=== PATIENT | male | born 1955 | race Caucasian/White ===

== ENCOUNTER 2020-02-12 17:40 | Inpatient (IN) | payer MEDICARE, SELFPAY ==
--- NOTE | 2020-02-12 17:47 | ECG_ITS ---
Measurements Intervals [place] Rate: 111 P: 66 OR: 166 QRS: 8 QRSD: 106 T: 36 QT: 356 QTc: 484 Interpretive Statements SINUS TACHYCARDIA NONSPECIFIC ST & T-WAVE ABNORMALITY- INF/LAT LEADS ABNORMAL ECG Electronically Signed On 02-13-2020 6:53:49 CDT by Silverio Hernández D.O.
--- NOTE | 2020-02-12 17:48 | ED.GENADULT ---
HPI - General Adult General Chief complaint: Alcohol <Abigail Trejo MD - Last Filed: 02/19/20 07:06> Stated complaint: DT'S <Abigail Trejo MD - Last Filed: 02/19/20 07:06> Time Seen by Provider: 02/12/20 17:46 <Abigail Trejo MD - Last Filed: 02/19/20 07:06> History of Present Illness HPI narrative: Patient presents via EMS for fast heart rate and shaking. He says right away that he is an alcoholic. He has a history of DTs, but not seizures. He last drank this morning. He says a lot. His favorite drink is vodka. He could not quantify it, but did say it was less than a gallon. He is a retired [employer] worker. He does not smoke cigarettes or marijuana. <Abigail Trejo MD - Last Filed: 02/19/20 07:06> Related Data Home medications: Home Medications Medication Instructions Recorded Confirmed acetaminophen 650 mg 650 mg PO TID PRN tablet 09/27/19 02/12/20 tablet,extended release thiamine HCl (vitamin B1) 100 mg 100 mg PO DAILY 01/17/20 02/12/20 tablet mirtazapine 30 mg PO HS 02/12/20 02/12/20 quetiapine 200 mg PO DAILY 02/12/20 02/12/20 <Abigail Trejo MD - Last Filed: 02/19/20 07:06> Allergies/adverse reactions: Allergies Allergy/AdvReac Type Severity Reaction Status Date / Time bupropion Allergy Unknown Nausea and Verified 02/12/20 20:01 Vomiting <Abigail Trejo MD - Last Filed: 02/19/20 07:06> Review of Systems Review of Systems: Narrative: Review of systems is limited by the patient's intoxication. He does say that he has no pain. <Abigail Trejo MD - Last Filed: 02/19/20 07:06> [facility] Past Medical History Medical History: Medical History (Updated 02/14/20 @ 16:06 by Poppy Gill PA-C) Anxiety Cervical spine fracture Old C1-C2 fracture Depression Essential hypertension Hyperlipidemia <Abigail Trejo MD - Last Filed: 02/19/20 07:06> Surgical History Surgical History: Surgical History (Updated 02/13/20 @ 02:11 by Brooklyn Wagner DO) H/O cervical spine surgery Fusion C3 through C7 H/O lumbosacral spine surgery <Abigail Trejo MD - Last Filed: 02/19/20 07:06> Family History Family History: Family History (Updated 02/13/20 @ 01:19 by Brooklyn Wagner DO) Mother Diabetes mellitus Acute myocardial infarction, Onset Age: 79 CHF (congestive heart failure) Father Acute myocardial infarction Late onset Cerebrovascular accident Sibling Acute myocardial infarction 1 brother is from premature coronary artery disease Alcoholism His brother who is still living is an alcoholic. <Abigail Trejo MD - Last Filed: 02/19/20 07:06> Social History Social History: Social History (Updated 02/13/20 @ 02:18 by Brooklyn Wagner DO) Social History: Primary care physician: Dr. Luis Escoto Code status: Full code. The patient does have events directives in place. Smoking status: Never smoker Alcohol intake: current Alcohol use details: He drinks at least 2-fifths of vodka daily. He has drank heavily for 3 years. Substance use: never Substance use type: does not use Living arrangements: alone Additional living arrangements comments: He has been for 3 years. He has been twice. He his 1st . He was to his 2nd for over 20 years prior to her . He has 1 biological child in 2 step children which are his support system. 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 Gender identity (if verbalized by the patient): Male Spiritual care concerns: No <Abigail Trejo MD - Last Filed: 02/19/20 07:06> Exam Narrative: Exam Narrative: GENERAL: Well-appearing, well-nourished, and wet hair and dishe
[2020-02-12 17:49] VITALS: BP 161/100; PULSE 131; RESP 17; TEMP 37.1; O2SAT 95
[2020-02-12 18:03] LABS: Basophils Absolute Auto 0.1 K/mm3 (0.0-0.1); Basophils Percent Auto 0.7 % (0.2-1.2); Eosinophils Absolute Auto 0.1 K/mm3 (0-0.3); Eosinophils Percent Auto 2.1 % (0-4.4); Hematocrit 39.3 % (42.0-52.0); Hemoglobin 12.8 g/dL (14.0-18.0); Immature Granulocyte Absolute 0.02 K/mm3 (0.00-0.031); Immature Granulocyte Percent A 0.3 % (0-0.5); Lymphocytes Absolute Auto 1.34 K/mm3 (0.9-3.2); Lymphocytes Percent Auto 19.8 % (18.3-44.2); Mean Corpuscular HGB Conc 32.6 g/dl (32-36); Mean Corpuscular Hemoglobin 28.1 pg (26-34); Mean Corpuscular Volume 86.2 fl (80-100); Monocytes Absolute Auto 0.5 K/mm3 (0.1-0.6); Monocytes Percent Auto 7.5 % (2.6-8.5); Neutrophils Absolute Auto 4.7 K/mm3 (1.3-6.7); Neutrophils Percent Auto 69.6 % (45.5-73.1); Platelet Count Result 305 k/mm3 (150-375); Red Blood Count 4.56 M/mm3 (4.6-6.20); Red Cell Distribution Width 14.3 % (11.5-14.5); White Blood Count 6.8 K/mm3 (4.5-10.0)
[2020-02-12 18:15] LABS: Alanine Aminotransferase 21 U/L (4-50); Albumin Level 4.8 g/dL (3.5-5.1); Alkaline Phosphatase 99 U/L (38-126); Aspartate Amino Transferase 28 U/L (17-59); Bilirubin,Total 0.6 mg/dL (0.2-1.3); Blood Urea Nitrogen 14 mg/dL (9-20); Carbon Dioxide 19 mmol/L (22-30); Chloride 100 mmol/L (98-107); Estimated CRCL calculation 102 ml/min; Estimated Glomerular Filt Rate > 60; Glucose 162 mg/dL (75-110); Potassium 3.4 mmol/L (3.4-5.0); Sodium 139 mmol/L (137-145)
[2020-02-12 18:27] LABS: Troponin I < 0.012 ng/mL (0.000-0.034)
[2020-02-12 18:38] VITALS: BP 156/87; PULSE 118; RESP 16; O2SAT 95
[2020-02-12] MEDS: ONDANSETRON INJ 4 MG/2 ML VIAL IV PUSH (18:38)
[2020-02-12 18:54] LABS: Ethanol 13 mg/dL (<10)
[2020-02-12] MEDS: LORAZEPAM INJ 2 MG/ML VIAL 1 MG IV PUSH (19:10)
[2020-02-12 19:25] LABS: Add Urine Microscopic? YES; Appearance Urine Clear (Clear); Bilirubin Urine Negative (Negative); Blood Urine 1+ (Negative); Color Urine Yellow (Yellow); Glucose Urine UA 1+ mg/dL (Negative); Ketones Urine 1+ mg/dL (Negative); Leukocyte Esterase Ur Negative LEU/UL (Negative); Mucus Urine Rare /lpf; Nitrate Urine Negative (Negative); Protein Urine 2+ mg/dL (Negative); RBC Urine 0-2 /hpf (0-2); Squamous Epithelial Cell Urine Rare /hpf (Few); Urobilinogen Urine Negative mg/dL (<2.0)
[2020-02-12 19:26] LABS: Specific Grav Ur 1.035 (1.001-1.035)
[2020-02-12 19:34] VITALS: BP 134/82; PULSE 113; RESP 20; O2SAT 94
[2020-02-12 19:36] LABS: Amphetamine Screen Urine Negative (Negative); Barbiturate Screen Urine Negative (Negative); Benzodiazepines Screen Urine Positive (Negative); Cannabinoid Screen Urine Negative (Negative); Cocaine Screen Urine Negative (Negative); Methadone Screen Urine Negative (Negative); Opiate Screen Urine Positive (Negative); Phencyclidine Screen Urine Negative (Negative)
[2020-02-12 20:03] VITALS: BP 153/94; PULSE 118; RESP 16; TEMP 36.8; O2SAT 97
[2020-02-12] MEDS: CHLORDIAZEPOXIDE 25 MG CAPSULE PO (20:04)
--- NOTE | 2020-02-12 20:40 | ADMGEN ---
This patient, Misha Orellana, was admitted to Medical Room 256-. Patient/family oriented to hospital policies and general routines including ID bracelet, bed and alarms, visiting hours, pain management, procedures, bathroom and other care routines, personal items, smoking policy, room service/diet, and visiting hours. Valuables list has been completed. Information on how to activate the Rapid Response Team has been discussed. Patient/Family are encouraged to report perceived risks to care and to ask questions if they do not understand what they are told or what they should do.
[2020-02-12] MEDS: LACTATED RINGERS 1,000 ML 125 ML IV CONT (21:51)
[2020-02-12] MEDS: FAMOTIDINE 20 MG/2 ML VIAL IV PUSH (21:52)
[2020-02-12 22:00] VITALS: BP 157/95; PULSE 117; RESP 20; TEMP 36.6; O2SAT 99; BMI 29.3
[2020-02-13] VITALS (14 sets, daily range): BP systolic 96–151; BP diastolic 65–82; PULSE 73–114; RESP 20–22; TEMP 36.7–37.4; O2SAT 99–100; BMI 29.3
[2020-02-13] MEDS: LORAZEPAM INJ 2 MG/ML VIAL 1 MG IV PUSH ×2 (00:08→08:15)
[2020-02-13] MEDS: CHLORDIAZEPOXIDE 25 MG CAPSULE 75 MG PO ×2 (00:08→05:27)
--- NOTE | 2020-02-13 01:13 | PM.IMHP ---
H&P: HPI History of Present Illness Chief complaint: Alcohol withdrawal Narrative: Date and time of patient contact: 02/12/2020 at 11:40 p.m. Misha Orellana is a 64 year old male with a past medical history of anxiety, depression, hypertension and alcoholism who presented to the ER alcohol withdrawal symptoms. He reports that he drinks at least 2 fifths of vodka a day. He has drank heavily for the last 3 years since his . He wants to quit drinking alcohol. He states that his last drink was on the morning of the . He reported that on the morning of the that he knew he needed help. He reports that he has had a high heart rate ever since his 3 years ago. However he started feeling his heart racing and was becoming quite tremulous. He states that he has never went through alcohol withdrawal before. However he does admit that he has a significant amount of anxiety and frequent racing of his heart. I suspect that the symptoms are related to prior episodes when he may not have been drinking quite is heavily. He denies any chest pain. He has been having some intermittent sweats and nausea. He denies any visual, tactile or auditory hallucinations. He reports that he is quite anxious currently. He does see a psychiatrist in [place]. He does admit to having history of depression but states that he would never even think about hurting himself. He has had multiple ER visits regarding as alcoholism but has never been hospitalized for alcohol withdrawal. He has tried to use Librium to help with his alcohol withdrawal. He states that he has not been taking his Librium, that was prescribed to 02/01/2020, for unclear reasons. He has been attempting to get established with a sponsor for alcohol rehabilitation. He reports he does have family support to quit drinking. His has a son from his 1st marriage and a stepson and daughter. He reports that he talks to his children frequently and feels as if he does have good family support. The patient still gets quite upset when talking about his 's . His suffered from ovarian cancer and he was her primary caregiver for the 2.5 years prior to her . He does have a problem with chronic headaches. He has had a history of prior cervical spine surgery C3 through C7 and in August fell off a ladder at which time an old C1 and C2 fracture was noted. He has chronic headaches that he relates to his chronic neck pain. However his headache has been worse than usual and he feels as if a ice pick is being driven into his forehead. He reports that his head always hurts with a 7/10 intensity but is now and 9/10 intensity. He has not had any recent nausea or vomiting. He denies any cough or congestion. He has not had any known COVID-19 positive contacts. He denies any hematochezia or melena. His last bowel movement was yesterday. He has had a colonoscopy in the past that was unremarkable. Review of Systems Review of Systems: Narrative: 12 systems were reviewed with pertinent positives and negatives per HPI. Except as documented in the HPI, all other systems were reviewed and are negative. [facility] Past Medical History Medical History (Updated 02/13/20 @ 02:27 by Brooklyn Wagner DO) Anxiety Cervical spine fracture Old C1-C2 fracture Depression Essential hypertension Hyperlipidemia Surgical History Surgical History (Updated 02/13/20 @ 02:11 by Brooklyn Wagner DO) H/O cervical spine surgery Fusion C3 through C7 H/O lumbosacral spine surgery Family History Family History (Updated 02/13/20 @ 01:19 by Brooklyn Wagner DO) Mother Diabetes mellitus Acute myocardial infarction, Onset Age: 79 CHF (congestive heart failure) Father Acute myocardial infarction Late onset Cerebrovascular accident Sibling Acute myocardial infarction 1 brother is from premature coronary artery disease Alcoholism His brother wh
[2020-02-13] MEDS: LACTATED RINGERS 1,000 ML 125 ML IV CONT (05:31)
[2020-02-13 06:04] LABS: Basophils Percent Auto 0.4 % (0.2-1.2); Eosinophils Absolute Auto 0.1 K/mm3 (0-0.3); Eosinophils Percent Auto 2.7 % (0-4.4); Hematocrit 34.3 % (42.0-52.0); Hemoglobin 10.9 g/dL (14.0-18.0); Immature Granulocyte Absolute 0.02 K/mm3 (0.00-0.031); Immature Granulocyte Percent A 0.4 % (0-0.5); Lymphocytes Percent Auto 18.5 % (18.3-44.2); Mean Corpuscular HGB Conc 31.8 g/dl (32-36); Mean Corpuscular Hemoglobin 27.7 pg (26-34); Mean Corpuscular Volume 87.1 fl (80-100); Mean Platelet Volume 9.4 fl (7.4-10.4); Monocytes Absolute Auto 0.3 K/mm3 (0.1-0.6); Monocytes Percent Auto 6.4 % (2.6-8.5); Neutrophils Absolute Auto 3.5 K/mm3 (1.3-6.7); Neutrophils Percent Auto 71.6 % (45.5-73.1); Platelet Count Result 241 k/mm3 (150-375); Red Blood Count 3.94 M/mm3 (4.6-6.20); Red Cell Distribution Width 14.3 % (11.5-14.5); White Blood Count 4.9 K/mm3 (4.5-10.0)
[2020-02-13 06:17] LABS: Phosphorus 3.1 mg/dL (2.5-4.5)
[2020-02-13 06:18] LABS: Sodium 131 mmol/L (137-145)
[2020-02-13 06:23] LABS: Alanine Aminotransferase 14 U/L (4-50); Albumin Level 3.8 g/dL (3.5-5.1); Alkaline Phosphatase 83 U/L (38-126); Aspartate Amino Transferase 23 U/L (17-59); Bilirubin,Total 1.1 mg/dL (0.2-1.3); Blood Urea Nitrogen 14 mg/dL (9-20); Calcium 8.6 mg/dL (8.4-10.2); Carbon Dioxide 29 mmol/L (22-30); Chloride 100 mmol/L (98-107); Estimated CRCL calculation 114 ml/min; Estimated Glomerular Filt Rate > 60; Glucose 94 mg/dL (75-110); Potassium 3.6 mmol/L (3.4-5.0)
[2020-02-13 07:24] LABS: Folic Acid 9.9 ng/mL (2.76->20)
[2020-02-13] MEDS: ACETAMINOPHEN 325 MG TABLET 650 MG PO (08:15)
[2020-02-13] MEDS: ONDANSETRON INJ 4 MG/2 ML VIAL IV PUSH (08:16)
[2020-02-13] MEDS: FAMOTIDINE 20 MG/2 ML VIAL IV PUSH ×2 (08:18→21:49)
[2020-02-13] MEDS: ENOXAPARIN 40 MG/0.4 ML SYRINGE SUB-Q (08:18)
[2020-02-13] MEDS: MULTIVITAMINS THERAPEUTIC TAB (*BKC) 1 TABLET PO (08:19)
[2020-02-13] MEDS: QUEtiapine FUMARATE XR 200 MG TAB.ER.24H PO (08:19)
[2020-02-13] MEDS: THIAMINE HCL 100 MG TABLET PO (08:19)
[2020-02-13] MEDS: METOPROLOL SUCCINATE EXT REL 100 MG TABCR PO (08:20)
[2020-02-13] MEDS: FOLIC ACID 1 MG TABLET PO (08:29)
--- NOTE | 2020-02-13 09:55 | PM.IMPN ---
Progress Note: A&P Assessment and Plan (1) Alcohol withdrawal: Qualifiers: Complication of substance-induced condition: uncomplicated Qualified Code(s): F10.230 - Alcohol dependence with withdrawal, uncomplicated Code(s): F10.239 - Alcohol dependence with withdrawal, unspecified Status: Acute Assessment and Plan: Continue to monitor with CIWA protocol. Continue scheduled Librium 50mg q6; Ativan q4 PRN for CIWA > 8. Care coordination helping him with resources - seems he is interested in inpatient rehabilitation at time of discharge. Anticipate possible discharge 1 to 2 days. (2) Metabolic acidosis: Code(s): E87.2 - Acidosis Status: Acute Assessment and Plan: Secondary to alcoholism. Continue IV hydration for now and monitor BMP. (3) Depression: Code(s): F32.9 - Major depressive disorder, single episode, unspecified Status: Acute Assessment and Plan: Continue home Remeron and seroquel. (4) Essential hypertension: Code(s): I10 - Essential (primary) hypertension Status: Acute Assessment and Plan: Elevated on arrival but now improved; last 123/65 this AM. Continue home metoprolol and monitor BP. Subjective Date/time seen: 02/13/20 09:15 Interval history: Mr. Oerllana is a 64yo M admitted due to alcohol withdrawal symptoms. He reports feeling okay today, just tired. He denies chest pain or shortness of breath. He has tolerated some breakfast without nausea or vomiting. He wants to quit drinking and is interested in learning about any resources care coordination has available. Review of Systems Review of Systems: Narrative: Twelve systems were reviewed with pertinent positives and negatives as per HPI. Exam Narrative: Exam Narrative: General: Male resting comfortably in bed in no acute distress. HEENT: Normocephalic, EOMI, oral mucosa tacky. Cardiovascular: Rate and rhythm are regular. Respiratory: Decreased breath sounds. Non-labored breathing. Abdomen: Soft, non-tender, non-distended, bowel sounds present. Extremities: Peripheral pulses intact. No edema appreciated. Neuro: No focal neurological deficits appreciated. Press Worker Helper strengths equal SHANAE and appropriate. No tremor appreciated. Objective Data Vital Signs Vital Signs: Last Vital Signs Temp 98.3 F 02/13/20 09:45 Pulse 82 02/13/20 09:45 Resp 21 H 02/13/20 09:45 BP 123/65 02/13/20 09:45 Pulse Ox 99 02/13/20 09:45 Intake/Output Intake/Output: Intake & Output 02/10/20 02/11/20 02/12/20 02/13/20 23:59 23:59 23:59 23:59 Intake Total 1013.2 2110 Output Total 800 Balance 1013.2 1310 Meds/Results Medications: Active Medications Generic Name Dose Route Start Last Admin Trade Name Freq PRN Reason Stop Dose Admin Acetaminophen 650 mg 02/13/20 02:09 02/13/20 08:15 Tylenol Tablet PO 650 mg TID PRN Administration Pain Chlordiazepoxide HCl 75 mg 02/13/20 00:00 02/13/20 05:27 Librium Po PO 75 mg Q6HR IGNACIA Administration Enoxaparin Sodium 40 mg 02/13/20 09:00 02/13/20 08:18 Lovenox SUB-Q 40 mg DAILY IGNACIA Administration Famotidine 20 mg 02/12/20 21:00 02/13/20 08:18 Pepcid Iv IV PUSH 20 mg Q12HR IGNACIA Administration Folic Acid 1 mg 02/13/20 09:00 02/13/20 08:29 Folic Acid PO 1 mg DAILY IGNACIA Administration Lactated Ringer's 1,000 mls @ 100 mls/hr 02/12/20 19:20 02/13/20 07:39 Lr - Lactated Ringers Iv IV CONT 100 mls/hr .Q10H IGNACIA Infusion Lorazepam 1 mg 02/12/20 20:54 02/13/20 08:15 Ativan Inj IV PUSH 1 mg Q4H PRN Administration For CIWA score 8 or greater Metoprolol Succinate 100 mg 02/13/20 09:00 02/13/20 08:20 Toprol Xl PO 100 mg DAILY IGNACIA Administration Mirtazapine 30 mg 02/13/20 21:00 Remeron PO HS IGNACIA [facility]
[2020-02-13] MEDS: MENTHOL 10% / METHYL SALICYLATE 15% 57 GM TUBE 1 APPLIC TOPICAL (11:08)
[2020-02-13] MEDS: CHLORDIAZEPOXIDE 25 MG CAPSULE 50 MG PO ×2 (11:44→18:20)
[2020-02-13] MEDS: LACTATED RINGERS 1,000 ML 100 ML IV CONT (15:55)
[2020-02-13] MEDS: MIRTAZAPINE 30 MG TABLET PO (21:49)
[2020-02-14] VITALS (10 sets, daily range): BP systolic 114–150; BP diastolic 66–83; PULSE 82–124; RESP 16–20; TEMP 36.5–37.1; O2SAT 96–98
[2020-02-14] MEDS: CHLORDIAZEPOXIDE 25 MG CAPSULE 50 MG PO ×3 (00:07→11:53)
[2020-02-14] MEDS: LACTATED RINGERS 1,000 ML 100 ML IV CONT (02:32)
[2020-02-14 05:41] LABS: Basophils Percent Auto 0.4 % (0.2-1.2); Eosinophils Absolute Auto 0.2 K/mm3 (0-0.3); Eosinophils Percent Auto 4.6 % (0-4.4); Hematocrit 34.9 % (42.0-52.0); Hemoglobin 11.1 g/dL (14.0-18.0); Immature Granulocyte Absolute 0.02 K/mm3 (0.00-0.031); Immature Granulocyte Percent A 0.4 % (0-0.5); Lymphocytes Absolute Auto 0.77 K/mm3 (0.9-3.2); Mean Corpuscular HGB Conc 31.8 g/dl (32-36); Mean Corpuscular Hemoglobin 28.3 pg (26-34); Mean Platelet Volume 9.4 fl (7.4-10.4); Monocytes Absolute Auto 0.2 K/mm3 (0.1-0.6); Monocytes Percent Auto 4.1 % (2.6-8.5); Neutrophils Absolute Auto 3.6 K/mm3 (1.3-6.7); Neutrophils Percent Auto 74.5 % (45.5-73.1); Platelet Count Result 179 k/mm3 (150-375); Red Blood Count 3.92 M/mm3 (4.6-6.20); Red Cell Distribution Width 14.4 % (11.5-14.5); White Blood Count 4.8 K/mm3 (4.5-10.0)
[2020-02-14 05:49] LABS: Partial Thromboplastin Time 27.2 SECONDS (22.3-36.8)
[2020-02-14 05:58] LABS: Alanine Aminotransferase 12 U/L (4-50); Albumin Level 3.4 g/dL (3.5-5.1); Alkaline Phosphatase 72 U/L (38-126); Aspartate Amino Transferase 20 U/L (17-59); Bilirubin,Total 0.8 mg/dL (0.2-1.3); Blood Urea Nitrogen 8 mg/dL (9-20); Calcium 8.6 mg/dL (8.4-10.2); Carbon Dioxide 32 mmol/L (22-30); Chloride 105 mmol/L (98-107); Estimated CRCL calculation 99 ml/min; Estimated Glomerular Filt Rate > 60; Glucose 163 mg/dL (75-110); Magnesium 1.8 mg/dL (1.6-2.3); Phosphorus 2.1 mg/dL (2.5-4.5); Potassium 3.7 mmol/L (3.4-5.0); Sodium 138 mmol/L (137-145)
--- NOTE | 2020-02-14 08:57 | PM.DS ---
DS: Admitting Diagnosis Admitting Diagnosis Admitting Diagnosis: Alcohol dependence with withdrawal, uncomplicated DS: Discharge Diagnosis Discharge Diagnosis (1) Alcohol withdrawal: Qualifiers: Complication of substance-induced condition: uncomplicated Qualified Code(s): F10.230 - Alcohol dependence with withdrawal, uncomplicated Code(s): F10.239 - Alcohol dependence with withdrawal, unspecified Status: Acute Assessment and Plan: Date of Service 02/14/20 Mr. Orellana is a pleasant 64yo M with history of essential hypertension, depression, and alcohol use disorder who presented to the ED for evaluation of alcohol withdrawal symptoms. He presented with diaphoresis, shaking, feeling like his heart was racing. He was treated with scheduled Librium and monitor closely with CIWA protocol. He is interested in inpatient alcohol rehabilitation and was provided resources from care coordination regarding same. He was monitored over a 2 midnight stay and on day of discharge, vital signs were stable and CIWA score was 2. His blood pressures were elevated on arrival but improved after resuming his home metoprolol last blood pressure 114/81. He was additionally maintained on his home Remeron and Seroquel. He was hemodynamically stable for discharge 02/14/2020 with plans to proceed to inpatient alcohol rehabilitation today. He was instructed to follow-up with Dr. Escoto upon his discharge from rehabilitation. (2) Depression: Qualifiers: Depression Type: unspecified Qualified Code(s): F32.9 - Major depressive disorder, single episode, unspecified Code(s): F32.9 - Major depressive disorder, single episode, unspecified Status: Acute Assessment and Plan: Continue home Remeron and seroquel. (3) Essential hypertension: Code(s): I10 - Essential (primary) hypertension Status: Acute Assessment and Plan: Elevated on arrival but now improved; stable for discharge. Continue his home metoprolol. DS: Summary Time Spent with Patient Time attestation: Total time spent providing and/or coordinating discharge services: 40 minutes Exam Narrative: Exam Narrative: General: Male resting comfortably in bed in no acute distress. HEENT: Normocephalic, EOMI, oral mucosa tacky. Cardiovascular: Rate and rhythm are regular. Respiratory: Decreased breath sounds. Non-labored breathing. Abdomen: Soft, non-tender, non-distended, bowel sounds present. Extremities: Peripheral pulses intact. No edema appreciated. Neuro: No focal neurological deficits appreciated. Distance Education Faculty Liaison strengths equal SHANAE and appropriate. No tremor appreciated. DS: Data Data Completed and Pending Labs on day of discharge: Lab Results 02/12/20 02/12/20 02/12/20 Range/Units 17:50 17:50 17:51 WBC 6.8 (4.5-10.0) K/mm3 RBC 4.56 L (4.6-6.20) M/mm3 Hgb 12.8 L (14.0-18.0) g/dL Hct 39.3 L (42.0-52.0) % MCV 86.2 (80-100) fl MCH 28.1 (26-34) pg MCHC 32.6 (32-36) g/dl RDW 14.3 (11.5-14.5) % Plt Count 305 (150-375) k/mm3 MPV 9.0 (7.4-10.4) fl Immature Gran % (Auto) 0.3 (0-0.5) % Neut % (Auto) 69.6 (45.5-73.1) % Lymph % (Auto) 19.8 (18.3-44.2) % Edgar % (Auto) 7.5 (2.6-8.5) % Eos % (Auto) 2.1 (0-4.4) % Baso % (Auto) 0.7 (0.2-1.2) % Lymph # (Auto) 1.34 (0.9-3.2) K/mm3 Edgar # (Auto) 0.5 (0.1-0.6) K/mm3 Eos # (Auto) 0.1 (0-0.3) K/mm3 Baso # (Auto) 0.1 (0.0-0.1) K/mm3 Abs Immat Gran (auto) 0.02 (0.00-0.031) K/mm3 Absolute Neuts (auto) 4.7 (1.3-6.7) K/mm3 Absolute Nucleated RBC 0.0 (0.0-0.012) K/mm3 Nucleated RBC % 0.0 (0.0-0.2) % APTT (22.3-36.8) SECONDS Sodium 139 (137-145) mmol/L Potassium 3.4 (3.4-5.0) mmol/L Chloride 100 (98-107) mmol/L Carbon Dioxide 19 L (22-30) mmol/L BUN 14 (9-2
[2020-02-14] MEDS: METOPROLOL SUCCINATE EXT REL 100 MG TABCR PO (09:19)
[2020-02-14] MEDS: QUEtiapine FUMARATE XR 200 MG TAB.ER.24H PO (09:20)
[2020-02-14] MEDS: MULTIVITAMINS THERAPEUTIC TAB (*BKC) 1 TABLET PO (09:20)
[2020-02-14] MEDS: FAMOTIDINE 20 MG/2 ML VIAL IV PUSH (09:20)
[2020-02-14] MEDS: FOLIC ACID 1 MG TABLET PO (09:20)
[2020-02-14] MEDS: THIAMINE HCL 100 MG TABLET PO (09:20)
[2020-02-14] MEDS: ENOXAPARIN 40 MG/0.4 ML SYRINGE SUB-Q (09:20)
[2020-02-14] MEDS: MENTHOL 10% / METHYL SALICYLATE 15% 57 GM TUBE 1 APPLIC TOPICAL (09:22)
== END 2020-02-14 14:20 | disposition home or self-care (01) | DRG 897 ==
LOC: ANHED 19:21 → ANH2MED 19:44
PROVIDERS: Emergency Medicine Emergency Medical Services; Physician Assistant; Admitting Provider Internal Medicine; Emergency Provider Emergency Medicine; PCP Emergency Medicine; Visit Provider Internal Medicine
DX: F10.230 Alcohol dependence with withdrawal, uncomplicated (principal); E87.2 Acidosis; F32.9 Major depressive disorder, single episode, unspecified; I10 Essential (primary) hypertension; E78.5 Hyperlipidemia, unspecified; F41.9 Anxiety disorder, unspecified; Z98.1 Arthrodesis status
CPT/HCPCS: 36415; 80053; 80307; 81001; 82607; 82746; 83735; 84100; 84484; 85025; 85730; 93005; 96361; 96365; 96372; 96375; 96376; 97161; 99285; A9270; G0378; J1650; J2060; J2405; J3411; J3475; J7030; J7120